=== PATIENT | male | born 1960 | race African-American/Black ===

== ENCOUNTER 2018-12-27 11:07 | Emergency (ER) | payer OTHER ==
[2018-12-27] MEDS ORDERED: IBUPROFEN 800 MG TABLET PO STA (11:47)
[2018-12-27] MEDS ORDERED: ACETAMINOPHEN 325 MG TABLET PO STA (11:48)
--- NOTE | 2018-12-27 12:36 | XRAY Report ---
Reason: ankle injury yest; pain and swelling, pain with wt Procedure Date: 12/27/2018 Accession Number: [id number] / [id number] Procedure: XR - Ankle 3 View RT CPT Code: FULL RESULT: EXAM: RIGHT ANKLE RADIOGRAPHY EXAM DATE: 12/27/2018 12:15 PM. CLINICAL HISTORY: Ankle injury yesterday; pain and swelling, pain with wt. COMPARISON: None. TECHNIQUE: 3 views. FINDINGS: Bones: Oblique distal right fibular fracture seen extending to the level of the tibiotalar joint with posterior displacement of the distal fracture fragment with 6 mm without significant displacement evident on the frontal view. Joints: Ankle mortise is well maintained. Right ankle effusion. No dislocation. Degenerative changes of the right midfoot and right ankle. Soft Tissues: Soft tissue swelling largely along the lateral aspect of the right ankle. IMPRESSION: 1. Distal right fibular Arteaga B type fibular fracture. RADIA
--- NOTE | 2018-12-27 12:54 | ED Physician Documentation ---
PD HPI LOWER EXT INJURY - Stated complaint Stated Complaint: R ANKLE INJ - Chief complaint Chief Complaint: Ext Problem - History obtained from History obtained from: Patient - History of Present Illness PD HPI LOW EXT INJURY LOCATION: Right, Ankle Type of injury: Fall, Twist Timing - onset: Yesterday Timing - details: Abrupt onset, Still present Improved by: Rest, Ice, Immobilization Worsened by: Moving, Palpating Associated symptoms: Swelling. No: Weakness, Numbness, Discolored Similar symptoms before: Has not had sx before Recently seen: Not recently seen Review of Systems Skin: denies: Abrasion (s), Laceration (s) Neurologic: denies: Focal weakness, Numbness, Confused, Altered mental status, Head injury PD PAST MEDICAL HISTORY - Past Medical History Past Medical History: Yes Cardiovascular: Hypertension - Past Surgical History Past Surgical History: Yes - Present Medications Home Medications: Ambulatory Orders Medication Instructions Recorded Confirmed Tramadol HCl 50 mg PO Q6H PRN #20 tablet 12/27/18 Triamterene/Hydrochlorothiazid 1 each PO 12/27/18 [Triamterene-Hctz 37.5-25 mg Cp] - Allergies Allergies/Adverse Reactions: Allergies Allergy/AdvReac Type Severity Reaction Status Date / Time No Known Drug Allergies Allergy Verified 12/27/18 11:19 - Social History Does the pt smoke?: No Smoking Status: Never smoker Does the pt drink ETOH?: No Does the pt have substance abuse?: No - Immunizations Immunizations are current?: Yes - POLST Patient has POLST: No PD ED PE NORMAL - Vitals Vital signs reviewed: Yes - General General: Alert and oriented X 3, No acute distress, Well developed/nourished - Back Back: No spinal TTP - Derm Derm: Normal color, Warm and dry - Extremities Extremities: Other (right ankle bags7ys with effusion at lateral malleolus. Medially not tender. No gross laxity with light stress testing. Achilles firm and not tender. ) - Neuro Neuro: Alert and oriented X 3, No motor deficit, No sensory deficit, Normal speech Results - Vitals Vitals: Vital Signs - 24 hr 12/27/18 12/27/18 11:19 13:01 Temperature 36.8 C 36.8 C Heart Rate 96 79 Respiratory 16 18 Rate Blood Pressure 154/94 H 151/90 H O2 Saturation 98 97 Oxygen O2 Source Room air - Rads (name of study) right ankle Radiology: Prelim report reviewed, EMP read contemporaneously (oblique distal fibula fracture, minimal displaced ), See rad report PD MEDICAL DECISION MAKING - ED course Complexity details: reviewed results, considered differential, d/w patient Departure - Departure Disposition: 01 Home, Self Care Clinical Impression: Fall due to ice or snow Qualifiers: Encounter type: initial encounter Qualified Code(s): W00.9XXA - Unspecified fall due to ice and snow, initial encounter Fracture, fibula Qualifiers: Encounter type: initial encounter Fibula location: lateral malleolus Fracture type: closed Fracture alignment: nondisplaced Laterality: right Qualified Code(s): S82.64XA - Nondisplaced fracture of lateral malleolus of right fibula, initial encounter for closed fracture Condition: Stable Record reviewed to determine appropriate education?: Yes Instructions: ED Fx Ankle Lateral Malleolus Follow-Up: [facility] [Provider Group] [facility] [Provider Group] [facility] [Provider Group] Prescriptions: Tramadol HCl 50 mg PO Q6H PRN #20 tablet PRN Reason: Pain Comments: Keep the ankle brace on most of the time. It is okay to remove it briefly for changing clothes and cleansing. Nonweightbearing initially for the first week. Follow-up with orthopedics in about a week, call for an appointment. Likely will allow you partial weightbearing starting around that time. Ibuprofen or naproxen twice daily for pain and inflammation. Ice elevate and rest the ankle often. Add Tylenol or tramadol if needed for pains. This will likely take about 4-5 weeks to heal up for normal full weightbearing without a brace. Discharge Date/Time: 12/27/18 13:10
[2018-12-27 13:01] VITALS: BP 151/90
== END 2018-12-27 13:10 | disposition home or self-care (01) ==
LOC: ED 11:07
DX: S82.64XA Nondisplaced fracture of lateral malleolus of right fibula, initial encounter for closed fracture (principal); W01.0XXA Fall on same level from slipping, tripping and stumbling without subsequent striking against object, initial encounter; I10 Essential (primary) hypertension
CPT/HCPCS: 73610; 99283; A9270

== ENCOUNTER 2019-09-26 08:55 | Outpatient (CLI) | payer OTHER ==
--- NOTE | 2019-09-26 15:39 | MRI Report ---
Reason: FRACTURE OF LAT MALLEOLUS RT FIBULA Procedure Date: 09/26/2019 Accession Number: [id number] / [id number] Procedure: MRI - Ankle RT W/O CPT Code: Final Report FULL RESULT: EXAM: RIGHT ANKLE/HINDFOOT MRI WITHOUT CONTRAST EXAM DATE: 09/26/2019 09:33 AM. CLINICAL HISTORY: FRACTURE OF LAT MALLEOLUS RT FIBULA. COMPARISON: ANKLE 3 VIEW RT 07/31/2019 8:31 AM. TECHNIQUE: Multiplanar, multisequence T1-weighted and fluid-sensitive sequences of the ankle/hindfoot without contrast. Other: None. FINDINGS: Bones and articular cartilage: There is a nondisplaced, obliquely oriented distal fibular fracture which is healing or is healed. There is an approximately 1.7 x 1.9 x 0.8 cm area of subcortical marrow edema, subcortical cyst, and slight cartilage irregularity at the medial aspect of the talar dome. There is moderate osteoarthritis at the plantar aspect of the navicular-medial cuneiform joint. Small subcortical cyst at the dorsal proximal aspect of the middle cuneiform. Mild to moderate first TMT joint osteoarthritis. Ligaments: The anterior and posterior tibiofibular, anterior and posterior talofibular, and calcaneofibular ligaments are intact. The deep and superficial deltoid and spring ligaments are intact. Anterior Tendons: The tibialis anterior, extensor hallucis longus, and extensor digitorum longus tendons are unremarkable. Medial Tendons: The tibialis posterior, flexor digitorum longus, and flexor hallucis longus tendons are unremarkable. Lateral Tendons: The peroneus brevis and longus are unremarkable. Achilles Tendon: The Achilles tendon is unremarkable. Musculature: No edema or fatty atrophy. Other: No effusions. The contents of the sinus tarsi and tarsal tunnel are unremarkable. No plantar fasciitis. There is subcutaneous edema at the visualized distal lower leg and ankle. IMPRESSION: 1. Healing or healed distal fibular fracture. 2. Osteochondral lesion/injury at the medial aspect of the talar dome. No discrete osteochondral fragment is seen. 3. 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 4. Subcutaneous edema at the visualized distal lower leg and ankle. RADIA
== END 2019-09-26 08:56 | disposition home or self-care (01) ==
LOC: DI 08:55
PROVIDERS: ATTEND Orthopaedic Surgery Sports Medicine
DX: S82.61XK Displaced fracture of lateral malleolus of right fibula, subsequent encounter for closed fracture with nonunion (principal); M19.071 Primary osteoarthritis, right ankle and foot; M25.871 Other specified joint disorders, right ankle and foot

== ENCOUNTER 2021-07-07 14:23 | Outpatient (CLI) | payer OTHER ==
--- NOTE | 2021-07-07 16:13 | XRAY Report ---
PROCEDURE: Calcaneus RT INDICATIONS: CHRONIC PAIN R CALCANEUS SINCE 2019 TECHNIQUE: Two views of the calcaneus were acquired. COMPARISON: None FINDINGS: Bones: No fractures or dislocations. No suspicious bony lesions. Soft tissues: No suspicious calcifications. Achilles tendon appears normal. IMPRESSION: Normal calcaneus Reviewed by: Dlebert Mendoza on 07/07/2021 4:12 PM PDT Approved by: Delbert Mendoza on 07/07/2021 4:12 PM PDT Station ID: [id number]
== END 2021-07-07 14:24 | disposition home or self-care (01) ==
LOC: DI 14:23
PROVIDERS: ATTEND Podiatrist
DX: M79.671 Pain in right foot (principal); G89.29 Other chronic pain